=== PATIENT | female | born 1955 | race Caucasian/White ===

== ENCOUNTER 2016-06-24 12:10 | Emergency (ER) | payer OTHER ==
[2016-06-24 12:21] VITALS: BP 171/77; PULSE 88; RESP 16; TEMP 98.5
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
[2016-06-24] MEDS: ACETAMINOPHEN TAB 500 MG TAB PO STA (14:38)
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
== END 2016-06-24 14:59 | disposition home or self-care (01) ==
LOC: EC 12:10
DX: S90.511A Abrasion, right ankle, initial encounter (principal); S80.811A Abrasion, right lower leg, initial encounter; M54.2 Cervicalgia; R51 Headache; E78.5 Hyperlipidemia, unspecified; I10 Essential (primary) hypertension; E07.9 Disorder of thyroid, unspecified; F90.9 Attention-deficit hyperactivity disorder, unspecified type; F41.9 Anxiety disorder, unspecified; F32.9 Major depressive disorder, single episode, unspecified; F17.200 Nicotine dependence, unspecified, uncomplicated; Z79.899 Other long term (current) drug therapy; Z88.2 Allergy status to sulfonamides; Z95.5 Presence of coronary angioplasty implant and graft; V43.52XA Car driver injured in collision with other type car in traffic accident, initial encounter; Y92.410 Unspecified street and highway as the place of occurrence of the external cause
CPT/HCPCS: 70450; 72100; 72125; 73502; 99284

== ENCOUNTER → 2017-09-16 | Outpatient (CLI) | payer OTHER ==
--- NOTE | 2017-09-21 13:21 | MM ---
Reason for exam: screening (asymptomatic). Last mammogram was performed 3 years and 7 months ago. History: Patient is postmenopausal. Family history of breast cancer in maternal grandmother. Took hormonal contraceptives for 10 years. Physical Findings: A clinical breast exam by your physician is recommended on an annual basis and results should be correlated with mammographic findings. MG Screening Mammo w CAD Bilateral CC and MLO view(s) were taken. Prior study comparison: February 03, 2014, bilateral MG screening mammo w CAD. There are scattered fibroglandular densities. No significant changes when compared with prior studies. ASSESSMENT: Benign, BI-RAD 2 RECOMMENDATION: Routine screening mammogram of both breasts in 1 year.
== END | disposition home or self-care (01) ==
LOC: RADMAMWWP 14:20
PROVIDERS: ATTEND Family Medicine
DX: Z12.31 Encounter for screening mammogram for malignant neoplasm of breast (principal); Z80.3 Family history of malignant neoplasm of breast
CPT/HCPCS: 77067

== ENCOUNTER → 2020-11-20 | Outpatient (CLI) | payer MEDICARE, OTHER ==
[2020-11-20 13:12] LABS: Basophils % (A) 1 %; Eosinophils # (A) 0.1 k/uL (0-0.7); Eosinophils % (A) 2 %; HCT 37.9 % (34.0-46.0); HGB 12.9 gm/dL (11.4-16.0); Lymphocytes # (A) 1.8 k/uL (1.0-4.8); Lymphocytes % (A) 30 %; MCH 33.5 pg (25.0-35.0); MCHC 33.9 g/dL (31.0-37.0); MCV 98.7 fL (80.0-100.0); Mean Platelet Volume 7.2; Monocytes # (A) 0.3 k/uL (0-1.0); Monocytes % (A) 5 %; Neutrophils # (A) 3.4 k/uL (1.3-7.7); Neutrophils % (A) 58 %; Platelet Count 322 k/uL (150-450); RBC 3.84 m/uL (3.80-5.40); RDW 13.5 % (11.5-15.5); WBC 5.9 k/uL (3.8-10.6)
[2020-11-20 13:24] LABS: ALT 19 U/L (4-34); AST 30 U/L (14-36); African American GFR (CKD) >90 (>60 ml/min/1.73 sqM); Albumin 4.5 g/dL (3.5-5.0); Alkaline Phosphatase 66 U/L (38-126); Anion Gap 8 mmol/L; Blood Urea Nitrogen 13 mg/dL (7-17); Calcium 9.8 mg/dL (8.4-10.2); Carbon Dioxide 26 mmol/L (22-30); Chloride 100 mmol/L (98-107); Glucose 111 mg/dL (74-99); Non-African American GFR(CKD) 80 (>60 ml/min/1.73 sqM); Potassium 4.2 mmol/L (3.5-5.1); Sodium 134 mmol/L (137-145); Total Bilirubin 0.3 mg/dL (0.2-1.3); Total Protein 7.1 g/dL (6.3-8.2)
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
[2020-11-20 21:09] LABS: Hemoglobin A1C 5.8 % (4.0-6.0)
[2020-11-21 04:06] LABS: Chol/HDL Ratio 4.13; Cholesterol 157 mg/dL (0-200); LDL Cholesterol,Calculated 62.8 mg/dL (0.0-131.0)
== END | disposition home or self-care (01) ==
LOC: RADCTMAIN 12:40
PROVIDERS: ATTEND Family Medicine
DX: Z03.89 Encounter for observation for other suspected diseases and conditions ruled out (principal)
CPT/HCPCS: 80061; 80053; 84443; 85025; 83036; 70491; 71260; 36415; Q9967

== ENCOUNTER → 2020-11-22 | Outpatient (CLI) | payer MEDICARE, OTHER ==
--- NOTE | 2020-11-26 09:48 | MM ---
Reason for exam: screening (asymptomatic). Last mammogram was performed 3 years and 2 months ago. History: Patient is postmenopausal. Family history of breast cancer in maternal grandmother at age 40 and breast cancer in paternal grandmother at age 70. Took hormonal contraceptives for 10 years. Physical Findings: A clinical breast exam by your physician is recommended on an annual basis and results should be correlated with mammographic findings. MG 3D Screening Mammo W/Cad Bilateral CC and MLO view(s) were taken. Prior study comparison: September 16, 2017, bilateral MG screening mammo w CAD. February 03, 2014, bilateral MG screening mammo w CAD. There are scattered fibroglandular densities. No significant changes when compared with prior studies. ASSESSMENT: Benign, BI-RAD 2 RECOMMENDATION: Routine screening mammogram of both breasts in 1 year.
== END | disposition home or self-care (01) ==
LOC: RADMAMWWP 10:54
PROVIDERS: ATTEND Family Medicine
DX: Z12.31 Encounter for screening mammogram for malignant neoplasm of breast (principal); Z78.0 Asymptomatic menopausal state; Z80.3 Family history of malignant neoplasm of breast
CPT/HCPCS: 77063; 77067

== ENCOUNTER → 2021-01-08 | Outpatient (CLI) | payer MEDICARE, OTHER ==
--- NOTE | 2021-01-08 12:02 | CTL ---
EXAMINATION TYPE: CT Low Dose Lung DATE OF EXAM ORDERED: 01/08/2021 COMPARISON: None HISTORY: . Low Dose CT Lung Screening CT DLP: [address] CTDI: 2.1 mGy IV CONTRAST USED: None. SCREENING VISIT: First visit COMPARISON: None. TECHNIQUE: Low dose computed tomography scan was performed through the chest at 1 millimeter thick se ctions and reconstructed images in the coronal plane at [address] DIAGNOSTIC QUALITY: Satisfactory FINDINGS: LUNG NODULES: Not presentLeft lung: no nodules identified.Right lung: no nodules identified. LUNGS: COPD: Severity: Mild Fibrosis: Severity:None Lymph nodes: None Other findings: None RIGHT PLEURAL SPACE: Effusion: None Calcification: None Thickening: None Pneumothorax: None LEFT PLEURAL SPACE: Effusion: None Calcification: None Thickening: None Pneumothorax: None HEART: Heart Size: Mildly enlarged Coronary calcification: Moderate Pericardial effusion: None OTHER FINDINGS: Upper abdomen: No significant abnormality Bony thorax: Degenerative changes Supraclavicular region: No significant abnormalityOther: No significant abnormalityI IMPRESSION: No significant pulmonary nodularity seen. FOLLOW UP CT CHEST RECOMMENDATION: Follow-up screening in one year CT LUNG RAD: LUNG RAD CATEGORY negative category 1
--- NOTE | 2021-01-08 12:16 | BD ---
EXAMINATION TYPE: Axial Bone Density DATE OF EXAM: 01/08/2021 COMPARISON: NONE CLINICAL HISTORY: Postmenopausal screening Height: 62.2 IN Weight: 165 LBS FRAX RISK QUESTIONS: Secondary Osteoporosis: 3. Menopause before 45: TOTAL HYST AGE 37 Current Tobacco Use: YES RISK FACTORS HISTORY OF: Active: YES Diet low in dairy products/other sources of calcium: YES Postmenopausal woman: TOTAL HYST AGE 37 Take estrogen and/or progesterone medications: NOT NOW How long: TOOK FOR APPROX 4 YEARS MEDICATIONS: Thyroid Medications: YES Which medication: Levothyroxine How Lon+ YEARS Additional Medications: VIT D, LEVOTHYROXINE, HCTZ, AMLODIPINE, LISINOPRIL, ATORVASTATIN, SINGULAIR, OMEPRAZOLE, OXYBIOTIN, BABY ASPIRIN, VIT B12, EXAM MEASUREMENTS: Bone mineral densitometry was performed using the [employer] System. Bone mineral density as measured about the Lumbar spine is: ----- L1-L4(G/cm2): 1.087 T Score Values are as follows: ----- L2: -0.6 ----- L3: -0.2 ----- L4: -1.7 ----- L1-L4: -0.8 Bone mineral density BASELINE Bone mineral density about the R hip (g/cm2): 0.776 Bone mineral density about the L hip (g/cm2): 0.742 T Score values are as follows: -----R Neck: -1.9 -----L Neck: -2.1 -----R Total: -1.3 -----L Total: -1.3 Bone mineral density BASELINE IMPRESSION: Osteopenia (T Score between -2.5 and -1). There is slightly increased risk of fracture and the patient may be considered for treatment. Re-Screen 2-5 years. NOTE: T-SCORE=SD OF THE YOUNG ADULT MEAN.
== END | disposition home or self-care (01) ==
LOC: RADBDWWP 10:42
PROVIDERS: ATTEND Family Medicine
DX: Z13.820 Encounter for screening for osteoporosis (principal); M85.89 Other specified disorders of bone density and structure, multiple sites; F17.210 Nicotine dependence, cigarettes, uncomplicated; Z12.2 Encounter for screening for malignant neoplasm of respiratory organs
CPT/HCPCS: 71271; 77080

== ENCOUNTER 2022-01-08 09:44 | Day surgery (SDC) | payer MEDICARE, OTHER ==
[2022-01-07 10:56] VITALS: BMI 27.9
[~2022-01-08 09:44] MED LIST: LACTATED RINGERS 1,000 ML IV SCH; LIDOCAINE 1% (10MG/ML) FOR IV START INTRADERMA PRN
[2022-01-08 11:08] VITALS: TEMP 96.9
--- NOTE | 2022-01-08 12:06 | P.PCN ---
Date of Procedure: 01/08/22 Procedure(s) Performed: BRIEF HISTORY: Patient is a 66-year-old pleasant 8 female scheduled for an elective colonoscopy as a part of screening for colorectal neoplasia. PROCEDURE PERFORMED: Colonoscopy. PREOPERATIVE DIAGNOSIS: Screening for colon cancer. IV sedation per Anesthesia. PROCEDURE: After informed consent was obtained, the patient, was brought into the endoscopy unit. IV sedation was administered by Anesthesia under continuous monitoring. Digital rectal examination was normal. Initially the Olympus CF-160 flexible video colonoscope was then inserted in the rectum, gradually advanced into the cecum without any difficulty. Careful examination was performed as the scope was gradually being withdrawn. Ileocecal valve and the appendiceal orifice were visualized and appeared normal. Prep was fair.. Mucosa of the cecum, ascending colon, transverse colon, descending colon, sigmoid colon, and rectum appeared normal. Retroflexion was performed in the rectum and no lesions were seen. The patient tolerated the procedure well. IMPRESSION: Normal-appearing colon from rectum to cecum with no evidence of colorectal neoplasia . RECOMMENDATIONS: Findings of this examination were discussed with the patient as well as her family. She was advised to have a repeat colonoscopy in 10 yea rs..
[2022-01-08] MEDS ORDERED: PROPOFOL 10 MG/ML 20 ML VIAL IV ONE (12:09)
[2022-01-08 12:23] VITALS: BP 112/73; PULSE 62; RESP 20
== END 2022-01-08 12:50 ==
LOC: ORWHC2ENDO 09:44
PROVIDERS: ATTEND Internal Medicine Gastroenterology
DX: K92.2 Gastrointestinal hemorrhage, unspecified (principal); Z88.1 Allergy status to other antibiotic agents; I10 Essential (primary) hypertension; E78.5 Hyperlipidemia, unspecified; F12.90 Cannabis use, unspecified, uncomplicated; E07.9 Disorder of thyroid, unspecified; F41.8 Other specified anxiety disorders; F90.9 Attention-deficit hyperactivity disorder, unspecified type; K21.9 Gastro-esophageal reflux disease without esophagitis; Z79.890 Hormone replacement therapy; Z79.899 Other long term (current) drug therapy
CPT/HCPCS: J2704; G0121

== ENCOUNTER → 2022-05-30 | Outpatient (CLI) | payer MEDICARE, OTHER ==
--- NOTE | 2022-05-30 13:19 | US ---
EXAMINATION TYPE: US kidneys/renal and bladder DATE OF EXAM: 05/30/2022 COMPARISON: NONE CLINICAL HISTORY: N18.3 CKD. abn labs EXAM MEASUREMENTS: Right Kidney: 7.4 x 4.0 x 4.0 cm Left Kidney: 8.7 x 3.4 x 3.4 cm TECHNIQUE: Multiple grayscale and color Doppler ultrasound images of the kidneys and bladder were obtained. Right Kidney: No hydronephrosis or masses seen Left Kidney: No hydronephrosis or masses seen Bladder: anechoic Bilateral Jets seen: No There is no evidence for hydronephrosis at this point in time. No nephrolithiasis is seen. No eliazar s are identified. The urinary bladder is anechoic. IMPRESSION: No hydronephrosis or nephrolithiasis.
--- NOTE | 2022-05-30 13:44 | MM ---
Reason for Exam: Additional evaluation requested from abnormal screening. Last screening mammogram was performed less than 1 month ago. Patient History: Menarche at age 12. First Full-Term at age 23. Left ovary removed at age 34. Right ovary removed at age 34. Hysterectomy at age 34. Postmenopausal. Patient has history of breast feeding. Patient used Hormonal Contraceptives for 10 years. Paternal grandmother had breast cancer, age 70. Maternal grandmother had breast cancer, age 40. Maternal aunt had breast cancer at or over age 50. Risk Values: Yleena 5 year model risk: 1.5%. NCI Lifetime model risk: 5.2%. Prior Study Comparison: 02/03/2014 Bilateral Screening Mammogram, [facility]. 09/16/2017 Bilateral Screening Mammogram, [facility]. 11/22/2020 Bilateral Screening Mammogram, [facility]. 05/23/2022 Bilateral MG 3D screening mammo w/cad, [facility]. Tissue Density: Right: There are scattered fibroglandular densities. Findings: Analyzed By CAD. Previously described group of linear calcifications within the right breast are not well-visualized on today's examination. No new suspicious calcifications or masses. Overall Assessment: Benign, BI-RAD 2 Management: Screening Mammogram of both breasts in 1 year. A clinical breast exam by your physician is recommended on an annual basis and results should be correlated with mammographic findings. This exam should not preclude additional follow-up of suspicious palpable abnormalities. Results were given to the patient verbally at the time of exam. Electronically signed and approved by: Alex Baker D.O.
== END | disposition home or self-care (01) ==
LOC: RADUSWWP 12:41
PROVIDERS: ATTEND Family Medicine
DX: R92.1 Mammographic calcification found on diagnostic imaging of breast (principal); N18.31 Chronic kidney disease, stage 3a; R92.8 Other abnormal and inconclusive findings on diagnostic imaging of breast; Z78.0 Asymptomatic menopausal state; Z80.3 Family history of malignant neoplasm of breast; Z90.721 Acquired absence of ovaries, unilateral
CPT/HCPCS: 77065; 76770; G0279; 77061

== ENCOUNTER → 2023-07-29 | Outpatient (CLI) | payer MEDICARE, OTHER ==
--- NOTE | 2023-08-02 22:42 | CTL ---
EXAMINATION TYPE: CT Low Dose Lung DATE OF EXAM ORDERED: 07/29/2023 HISTORY: 68-year-old female Z12.2 Screening F17.210 Nicotine Dependence. Lung cancer screening. Nelli nt smoker with 30 pack-year history. CT DLP: 98.[address] CTDI: 2.7 mGy Automated exposure control for dose reduction was used. SCREENING VISIT: Annual follow-up. COMPARISON: 05/23/2022 TECHNIQUE: Low dose computed tomography scan was performed through the chest with coronal and sagitta l reconstructions. CT DIAGNOSTIC QUALITY: Satisfactory FINDINGS: Heart is normal size without pericardial effusion. LAD and circumflex coronary artery calcifications are present. Mild aortic valvular calcifications. Mildly ectatic ascending aorta 3.7 cm. Mild atherosclerotic arch calcifications with conventional. Br anching anatomy. Scattered nonenlarged mediastinal lymph nodes are unchanged. Punctate calcified subcarinal lymph node suggests sequela of prior granulomatous disease. Benign calcified granuloma redemonstrated left midlung, axially and 123. 3 mm left upper lobe pulmonary nodule, axial image 87 is unchanged. 3 mm lingular pulmonary nodule, axial image 154 is unchanged. Lingular calcified granuloma, axial image 160 is unchanged. Scattered subpleural reticular change is [id number] upper lung predominant emphysema. Reticular changes more pronounced in the lower lungs where some subpleural groundglass is also present. No consolidation or pleural effusion. Visualized upper abdomen shows a hilar splenule. Similar mild diffuse thickening of the left adrenal gland without discrete nodularity. Bones: No osseous destructive process. IMPRESSION: 1. LungRADS 2, benign. Evidence of prior granulomatous disease as well as a few scattered 3 mm pulmon tanya nodules which remain unchanged. 2. COPD with mild to moderate emphysema. Recommend smoking cessation. 3. Additional scattered subpleural reticular change and mild groundglass in the lung bases. Smoking a ssociated DIP is a consideration. CT LUNG RAD AND CT CHEST RECOMMENDATION: Lung-Rad 2 Benign Appearance or Behavior: Continue annual sc reening with LDCT in 12 months. S Modifier (other clinically significant findings): None
== END | disposition home or self-care (01) ==
LOC: RADCTMAIN 14:08
PROVIDERS: ATTEND Family Medicine
DX: Z12.2 Encounter for screening for malignant neoplasm of respiratory organs (principal); J44.9 Chronic obstructive pulmonary disease, unspecified; J43.9 Emphysema, unspecified; J98.4 Other disorders of lung; R91.8 Other nonspecific abnormal finding of lung field; F17.210 Nicotine dependence, cigarettes, uncomplicated
CPT/HCPCS: 71271

== ENCOUNTER → 2023-07-29 | Outpatient (CLI) | payer MEDICARE, OTHER ==
--- NOTE | 2023-07-31 10:09 | MM ---
Reason for Exam: Screening (asymptomatic). Last mammogram was performed 1 year(s) and 2 month(s) ago. Patient History: Menarche at age 12. First Full-Term at age 23. Left ovary removed at age 34. Right ovary removed at age 34. Hysterectomy at age 34. Postmenopausal. Patient has history of breast feeding. Patient used Hormonal Contraceptives for 10 years. Paternal grandmother had breast cancer, age 70. Maternal grandmother had breast cancer, age 40. Maternal aunt had breast cancer at or over age 50. Risk Values: Yelena 5 year model risk: 1.5%. NCI Lifetime model risk: 5.0%. Prior Study Comparison: 11/22/2020 Bilateral Screening Mammogram, [facility]. 05/23/2022 Bilateral MG 3D screening mammo w/cad, [facility]. 05/30/2022 Right MG 3D work up w/cad RT, [facility]. Tissue Density: There are scattered areas of fibroglandular density. Findings: Analyzed By CAD. Right breast: There is no suspicious group of microcalcifications or new suspicious mass. Benign-appearing calcifications right breast. Left breast: There is no suspicious group of microcalcifications or new suspicious mass. Benign-appearing calcifications left breast. Overall Assessment: Benign, BI-RAD 2 Management: Screening Mammogram of both breasts in [address] [facility] will attempt to contact patient to return for supplemental views and ultrasound if indicated. Patient should continue monthly self-breast exams. A clinical breast exam by your physician is recommended on an annual basis. This exam should not preclude additional follow-up of suspicious palpable abnormalities. Note on Yelena scores and lifetime risk: 1. A Yelena score greater than 3% is considered moderate risk. If this is the case, consider specialist referral to assess eligibility for a risk reducing agent. 2. If overall lifetime risk for the development of breast cancer is 20% or higher, the patient may qualify for future screening with alternating mammogram and breast MRI. Electronically signed and approved by: Phu Ruano DO
== END | disposition home or self-care (01) ==
LOC: RADMAMWWP 13:49
PROVIDERS: ATTEND Family Medicine
DX: Z12.31 Encounter for screening mammogram for malignant neoplasm of breast (principal); Z78.0 Asymptomatic menopausal state; Z80.3 Family history of malignant neoplasm of breast
CPT/HCPCS: 77063; 77067

== ENCOUNTER → 2024-10-24 | Outpatient (CLI) | payer MEDICARE, OTHER ==
--- NOTE | 2024-10-24 15:14 | CTL ---
EXAMINATION TYPE: CT Low Dose Lung DATE OF EXAM ORDERED: 10/24/2024 COMPARISON: CT Low Dose Lung 07/29/2023, 05/23/2022, 01/08/2021 CLINICAL INDICATION: Female, 69 years old with history of Z12.31 Screening; Z78.0 Post menopausal; Z1 2.2 Scr; [facility], FORMER SMOKER, PT QUIT 1 YEAR AGO, Lung cancer screening, History of Smoking/tobacco us e. TECHNIQUE: Low dose computed tomography scan was performed through the chest at 1 mm thick sections a nd reconstructed images in multiple planes at 1 mm and [address] DLP: 109.[address] CTDI: 3.0 mGy Automated exposure control for dose reduction was used. CT DIAGNOSTIC QUALITY: Satisfactory FINDINGS: Nodules: Few left lung calcified granulomas. Stable left upper lobe 2.9 mm pulmonary nodule (series 6, image 1 7). Stable lingular 3.0 mm pulmonary nodule (series 6, image 30). No new or enlarging pulmonary nodul e. LUNGS: COPD: Severity: Mild Fibrosis: Severity: Mild Lymph nodes: None Other findings: None RIGHT PLEURAL SPACE: Effusion: None Calcification: None Thickening: None Pneumothorax: None LEFT PLEURAL SPACE: Effusion: None Calcification: None Thickening: None Pneumothorax: None HEART: Heart Size: Normal, mild aortic valvular calcifications. Coronary Calcification: Moderate Pericardial Effusion: None OTHER FINDINGS: Upper abdomen: None Bony thorax: None Supraclavicular region: None Other: Atherosclerotic calcification of the aorta and its branches. IMPRESSION: 1. Couple of stable pulmonary micronodules measuring 3 mm with evidence of prior granulomatous disea se. No new or enlarging pulmonary nodule. 2. Mild emphysematous and subpleural pulmonary fibrotic changes. CT LUNG RAD AND CT CHEST RECOMMENDATION: Lung-Rad 2 Benign Appearance or Behavior: Continue annual sc reening with LDCT in 12 months. S Modifier (other clinically significant findings): None [facility], , 10/24/2024 3:12 PM
--- NOTE | 2024-10-25 08:26 | MM ---
Reason for Exam: Screening (asymptomatic). Last mammogram was performed 1 year(s) and 3 month(s) ago. Patient History: Menarche at age 12. First Full-Term at age 23. Left ovary removed at age 34. Right ovary removed at age 34. Hysterectomy at age 34. Postmenopausal. Patient has history of breast feeding. Patient used Hormonal Contraceptives for 10 years. Paternal grandmother had breast cancer, age 70. Maternal grandmother had breast cancer, age 40. Maternal aunt had breast cancer at or over age 50. Risk Values: Yelena 5 year model risk: 1.5%. NCI Lifetime model risk: 4.8%. Prior Study Comparison: 05/23/2022 Bilateral MG 3D screening mammo w/cad, [facility]. 05/30/2022 Right MG 3D work up w/cad RT, [facility]. 07/29/2023 Bilateral MG 3D screening mammo w/cad, [facility]. Tissue Density: There are scattered areas of fibroglandular density. Findings: Analyzed By CAD. There is no suspicious group of microcalcifications or new suspicious mass in either breast. Overall Assessment: Negative, BI-RAD 1 Management: Screening Mammogram of both breasts in 1 year. . Patient should continue monthly self-breast exams. A clinical breast exam by your physician is recommended on an annual basis. This exam should not preclude additional follow-up of suspicious palpable abnormalities. Note on Yelena scores and lifetime risk: 1. A Yelena score greater than 3% is considered moderate risk. If this is the case, consider specialist referral to assess eligibility for a risk reducing agent. 2. If overall lifetime risk for the development of breast cancer is 20% or higher, the patient may qualify for future screening with alternating mammogram and breast MRI. [facility], , 10/25/2024 8:23 AM. Electronically signed and approved by: Jacob Amaya M.D. Radiologis
--- NOTE | 2024-10-25 11:15 | BD ---
EXAMINATION TYPE: Axial Bone Density DATE OF EXAM: 10/24/2024 CLINICAL HISTORY: 69 years old Female. ICD-10 CODE: Z78.0 POST MENOPAUSAL , Additional History: Height: 62 Weight: 165.9 FRAX RISK QUESTIONS: Alcohol (3 or more units per day): no Family History (Parent hip fracture): no Glucocorticoids (More than 3mos): yes (Ex: prednisone, prednisolone, methylprednisolone, dexamethasone, and hydrocortisone). History of Fracture in Adulthood: no Secondary Osteoporosis: 1. Type 1 Diabetes: no 2. Hyperthyroidism: no 3. Menopause before 45: no 4. Malnutrition: no 5. Chronic liver disease: no Rheumatoid Arthritis: no Current Tobacco Use: no RISK FACTORS HISTORY OF: Surgery to Spine/Hip(right/left)/Wrist (right/left): no MEDICATIONS: Thyroid Medications: synthroid How Long: since 1990 EXAM MEASUREMENTS: Bone mineral densitometry was performed using the [employer]Beat System. Bone mineral density as measured about the Lumbar spine is: ----- L1-L4(G/cm2): 1.063 T Score Values are as follows: ----- L1: -0.7 ----- L2: -0.8 ----- L3: -0.8 ----- L4: -1.6 ----- L1-L4: -1.0 Z Score Values are as follows: ----- L1: 0.6 ----- L2: 0.5 ----- L3: 0.6 ----- L4: -0.3 ----- L1-L4: 0.3 Bone mineral density has: decreased -2.2 % since study of: 01.08.2021 Bone mineral density about the R hip (g/cm2): 0.829 Bone mineral density about the L hip (g/cm2): 0.818 T Score values are as follows: -----R Neck: -2.0 -----L Neck: -2.1 -----R Total: -1.4 -----L Total: -1.5 Z Score values are as follows: -----R Neck: -0.5 -----L Neck: -0.7 -----R Total: -0.2 -----L Total: -0.3 Bone mineral density has: decreased -0.2 % since study of: 01.08.2021 FRAX%s: The graph provided illustrates a 18.9% chance for a major osteoporotic fx and a 4.4% chance f or the hips probability for fx in 10 years time. IMPRESSION: Osteopenia (T Score between -2.5 and -1). There is slightly increased risk of fracture and the patient may be considered for treatment. Re-Screen 2-5 years. NOTE: T-SCORE=SD OF THE YOUNG ADULT MEAN. [facility], , 10/25/2024 11:13 AM
== END | disposition home or self-care (01) ==
LOC: RADCTMAIN 14:39
PROVIDERS: ATTEND Family Medicine
DX: Z12.31 Encounter for screening mammogram for malignant neoplasm of breast (principal); Z12.2 Encounter for screening for malignant neoplasm of respiratory organs; R91.8 Other nonspecific abnormal finding of lung field; J43.9 Emphysema, unspecified; M85.89 Other specified disorders of bone density and structure, multiple sites; R92.323 Mammographic fibroglandular density, bilateral breasts; J84.10 Pulmonary fibrosis, unspecified; Z78.0 Asymptomatic menopausal state; Z87.891 Personal history of nicotine dependence; Z92.0 Personal history of contraception; Z80.3 Family history of malignant neoplasm of breast
CPT/HCPCS: 71271; 77063; 77067; 77080